=== PATIENT | female | born 1965 | race Caucasian/White ===

== ENCOUNTER 2017-12-19 12:16 | Emergency (ER) | payer MEDICAID ==
[~2017-12-19] VITALS: Ht 170.2 cm; Wt 77.1 kg
--- NOTE | 2017-12-19 12:30 | NUR ---
GENERALIZED WEAKNESS X 1 MONTH, HEADACHE AND NAUSEA, VOMITING X 1 TODAY. PT AAOX3, VSS. DENIES CP, SOB, DIZZINESS @ THIS TIME. AWAITING EVAL BY MD/TRANSFER COORDINATOR. WILL CONT TO MONITOR.
[2017-12-19 13:00] LABS: BASOPHILS % (AUTO) 0.6 % (0.0-2.0); EOSINOPHILS % (AUTO) 0.7 % (0.0-6.0); HEMATOCRIT 43 % (33-45); HEMOGLOBIN 14.5 g/dL (11.5-14.8); LYMPHOCYTES # (AUTO) 1.4 /CMM (0.8-4.8); LYMPHOCYTES % (AUTO) 23.7 % (20.0-44.0); MEAN CORPUSCULAR HGB CONC 34 g/dl (31.0-36.0); MEAN CORPUSCULAR VOLUME 88 fL (82-100); MONOCYTES # (AUTO) 0.3 /CMM (0.1-1.30); MONOCYTES % (AUTO) 4.2 % (2.0-12.0); NEUTROPHILS # (AUTO) 4.3 /CMM (1.8-8.9); NEUTROPHILS % (AUTO) 70.8 % (43.0-81.0); PLATELET COUNT (AUTO) 259 /CMM (150-450); RDW COEFFICIENT OF VARIATION 12.6 (11.5-15.0); RED BLOOD CELL COUNT(AUTO) 4.91 MIL/uL (4.0-5.2)
[2017-12-19] MEDS ORDERED: ACETAMINOPHEN ES 500 MG TABLET PO ONE (13:00)
[2017-12-19] MEDS ORDERED: ACETAMINOPHEN ES 500 MG TABLET ONE (13:00)
[2017-12-19] MEDS ORDERED: IV NS 0.9% 1,000 ML BAG IV ONE (13:00)
[2017-12-19 13:18] LABS: ALBUMIN 3.9 g/dL (3.4-5.0); BILIRUBIN,TOTAL 0.4 mg/dL (0.2-1.0); CALCIUM, SERUM 9.3 mg/dL (8.5-10.1); CREATININE 0.9 mg/dL (0.6-1.3); POTASSIUM 4.1 mmol/L (3.5-5.1); TOTAL PROTEIN, SERUM 7.5 g/dL (6.4-8.2)
[2017-12-19 13:52] LABS: APPEARANCE,URINE Clear (CLEAR); BILIRUBIN,URINE Negative (NEGATIVE); BLOOD, URINE Negative Ery/uL (NEGATIVE); COLOR,URINE Yellow (YELLOW); KETONES,URINE Negative (NEGATIVE); LEUKOCYTE ESTERASE ,URINE Negative (NEGATIVE); NITRITE, URINE Negative (NEGATIVE); PROTEIN,URINE Negative (NEGATIVE); UGLUCOSE Negative (NEGATIVE); UROBILINOGEN,URINE 0.2 EU/dL (0.2)
[2017-12-19 14:57] VITALS: BP 132/81
== END 2017-12-19 14:59 | disposition home or self-care (01) ==
LOC: ER 12:16
DX: R53.81 Other malaise (principal); R51 Headache; R11.2 Nausea with vomiting, unspecified; R35.8 Other polyuria; R63.1 Polydipsia; R63.2 Polyphagia
CPT/HCPCS: 36415; 80053; 81001; 82962; 84703; 85025; 96360; 96361; 99285; A4606; J7030; Z7610; 81000-TC

== ENCOUNTER 2018-11-02 14:59 | Emergency (ER) | payer MEDICAID ==
[~2018-11-02] VITALS: Ht 172.7 cm; Wt 90.7 kg
--- NOTE | 2018-11-02 15:48 | NUR ---
PATIENT CAME IN THE ER C/O RUQ ABDOMINAL PAIN, NAUSEA AND VOMITING X 5 DAYS. ON ROOM AIR, BREATHING EVENLY AND UNLABORED. AMBULATORY WITH STEADY GAIT. KEPT COMFORTABLE, WILL CONTINUE TO MONITOR ACCORDINGLY.
[2018-11-02 16:11] LABS: BASOPHILS # (AUTO) 0.1 /CMM (0.0-0.2); BASOPHILS % (AUTO) 1.2 % (0.0-2.0); HEMATOCRIT 45 % (33-45); HEMOGLOBIN 14.8 g/dL (11.5-14.8); LYMPHOCYTES # (AUTO) 1.6 /CMM (0.8-4.8); LYMPHOCYTES % (AUTO) 36.4 % (20.0-44.0); MEAN CORPUSCULAR HGB CONC 33 g/dl (31.0-36.0); MEAN CORPUSCULAR VOLUME 91 fL (82-100); MONOCYTES # (AUTO) 0.4 /CMM (0.1-1.30); MONOCYTES % (AUTO) 9.7 % (2.0-12.0); NEUTROPHILS # (AUTO) 2.2 /CMM (1.8-8.9); NEUTROPHILS % (AUTO) 49.7 % (43.0-81.0); PLATELET COUNT (AUTO) 258 /CMM (150-450); RED BLOOD CELL COUNT(AUTO) 4.96 MIL/uL (4.0-5.2); WHITE BLOOD COUNT (AUTO) 4.5 K/uL (4.3-11.0)
[2018-11-02 16:26] LABS: CALCIUM, SERUM 8.7 mg/dL (8.5-10.1); CREATININE 0.8 mg/dL (0.6-1.3); POTASSIUM 4.3 mmol/L (3.5-5.1)
[2018-11-02 16:32] LABS: ALBUMIN 3.1 g/dL (3.4-5.0); BILIRUBIN,DIRECT 0.3 mg/dL (0.0-0.2); BILIRUBIN,TOTAL 0.3 mg/dL (0.2-1.0)
--- NOTE | 2018-11-02 16:32 | NUR ---
SURVEYOR CHAIN HELPER AT BEDSIDE.
[2018-11-02 17:40] VITALS: BP 133/85
--- NOTE | 2018-11-02 17:41 | NUR ---
Patient discharged to home in stable condition. Written and verbal after care instructions given. Patient verbalizes understanding of instruction.
== END 2018-11-02 17:40 | disposition home or self-care (01) ==
LOC: ER 14:59
DX: K80.50 Calculus of bile duct without cholangitis or cholecystitis without obstruction (principal); R74.0 Nonspecific elevation of levels of transaminase and lactic acid dehydrogenase [LDH]; Z98.890 Other specified postprocedural states
CPT/HCPCS: 36415; 76705-TC; 80048-TC; 80076-TC; 83690-TC; 85025-TC

== ENCOUNTER 2019-08-31 08:32 | Inpatient (IN) | payer MEDICAID ==
[~2019-08-31] VITALS: Ht 167.6 cm; Wt 97.5 kg
--- NOTE | 2019-08-31 08:45 | NUR ---
padmini came in to the er c/o "Pain on the R side/abdomen x3days. Feel sick". On room air, breathing evenly an dunlabored. connected to the monitor and pulse ox. kept comfortable, will continue to monitor accordingly.
--- NOTE | 2019-08-31 09:20 | NUR ---
specimen technician at bedside for exam
[2019-08-31 09:27] LABS: APPEARANCE,URINE Clear (CLEAR); BACTERIA,URINE Few /HPF (None Seen); BILIRUBIN,URINE Negative (NEGATIVE); BLOOD, URINE Negative Ery/uL (NEGATIVE); COLOR,URINE Yellow (YELLOW); KETONES,URINE Negative (NEGATIVE); LEUKOCYTE ESTERASE ,URINE Negative (NEGATIVE); NITRITE, URINE Negative (NEGATIVE); PROTEIN,URINE Negative (NEGATIVE); UGLUCOSE Negative (NEGATIVE)
[2019-08-31 09:28] LABS: SQUAMOUS EPITHELIAL CELL,UR Few /HPF (None Seen)
--- NOTE | 2019-08-31 09:30 | NUR ---
FAXED CLINICALS TO [facility].
[2019-08-31 09:55] LABS: BASOPHILS % (AUTO) 0.7 % (0.0-2.0); EOSINOPHILS % (AUTO) 1.8 % (0.0-6.0); HEMATOCRIT 42 % (33-45); LYMPHOCYTES % (AUTO) 37.2 % (20.0-44.0); MEAN CORPUSCULAR HGB CONC 33 g/dl (31.0-36.0); MEAN CORPUSCULAR VOLUME 92 fL (82-100); MONOCYTES # (AUTO) 0.3 /CMM (0.1-1.30); MONOCYTES % (AUTO) 5.5 % (2.0-12.0); NEUTROPHILS # (AUTO) 2.9 /CMM (1.8-8.9); NEUTROPHILS % (AUTO) 54.8 % (43.0-81.0); PLATELET COUNT (AUTO) 259 /CMM (150-450); WHITE BLOOD COUNT (AUTO) 5.3 K/uL (4.3-11.0)
[2019-08-31 10:09] LABS: CALCIUM, SERUM 9.2 mg/dL (8.5-10.1); POTASSIUM 3.8 mmol/L (3.5-5.1)
[2019-08-31 10:21] LABS: ALBUMIN 3.8 g/dL (3.4-5.0); BILIRUBIN,DIRECT 0.1 mg/dL (0.0-0.2); BILIRUBIN,TOTAL 0.4 mg/dL (0.2-1.0); TOTAL PROTEIN, SERUM 7.3 g/dL (6.4-8.2)
--- NOTE | 2019-08-31 11:45 | NUR ---
FAXED CLINICALS TO [facility] A SECOND TIME.
--- NOTE | 2019-08-31 11:59 | NUR ---
SPOKE TO DR. LOMELI. PER DR. LOMELI WILL CONTACT PATTERNMAKER HELPER AT [facility] AND WILL FOLLOW UP WITH ER STAFF.
--- NOTE | 2019-08-31 12:28 | NUR ---
Received a call from Shelley ([facility]) and report given. Will call back for MD to .
--- NOTE | 2019-08-31 12:45 | NUR ---
PAGED [facility].
--- NOTE | 2019-08-31 12:58 | NUR ---
CALLED NURSING SUP FOR M/S BED.
--- NOTE | 2019-08-31 13:38 | NUR ---
DR. JOVEL CALLED BACK AND WANTS TO SEE THE AMBULANCE ETA BEFORE ACCEPTING PT. WILL CALL CM FROM [facility] TO OBTAIN ETA FOR AMBULANCE TRANSPORT.
--- NOTE | 2019-08-31 13:52 | NUR ---
SPOKE TO ALYSSA THOMPSON AT [facility] REGARDING AMBULANCE TRANSFER. ETA FOR AMBULANCE IS GREATER THAN [address] DR. LANG.
--- NOTE | 2019-08-31 15:22 | NUR ---
SPOKE TO KATY SHAH FROM [facility]. AT THE MOMENT THERE IS STILL NO BED ASSIGNMENT AND AMBULANCE ETA. STILL WAITING FOR BED ASSIGNMENT WITH UNKNOWN ETA. WILL NOTIFY DR. JOVEL.
--- NOTE | 2019-08-31 15:24 | NUR ---
PAGED DR. JOVEL.
--- NOTE | 2019-08-31 15:51 | NUR ---
SPOKE TO DR. JOVEL. NOTIFIED HIM ABOUT THERE NOT BEING ANY BED ASSIGNMENT AND AMBULANCE ETA. DR. JOVEL WILL ADMIT TO [facility].
[2019-08-31] MEDS ORDERED: IV 1/2NS 1000 ML 1,000 ML IV PRN (15:55)
--- NOTE | 2019-08-31 15:58 | NUR ---
NURSING SUP GAVE M/S BED 206-1.
[2019-08-31] MEDS ORDERED: ACETAMINOPHEN 325 MG TABLET PO PRN (16:00)
[2019-08-31] MEDS ORDERED: Z GUARD REMEDY 2 OZ OINT TP PRN (16:00)
[2019-08-31] MEDS ORDERED: MORPHINE SULFATE INJ 2 MG/ML DISP.SYRIN IV PRN (16:00)
[2019-08-31] MEDS ORDERED: ZOLPIDEM TARTRATE 5 MG TABLET PO PRN (16:00)
[2019-08-31] MEDS ORDERED: ONDANSETRON HCL/PF 4 MG/2 ML VIAL IVP PRN (16:00)
--- NOTE | 2019-08-31 16:06 | NUR ---
report given to evon humphrey for chris
[2019-08-31] MEDS ORDERED: IV NS 0.9% 500 ML BAG IV ONE (16:30)
--- NOTE | 2019-08-31 16:40 | NUR ---
wheeled patient via gurney accompanied by EMT in no distress. RN at bedside to assume care.
--- NOTE | 2019-08-31 17:30 | NUR ---
RN ADMITTING NOTE Patient arrived from ER on gurney, ambulated to bed. Patient is A/O x4, showing no signs of acute distress or SOB, stable on RA. IV line in the RAC #18g is clean and intact, flushing well. Vitals BP 149/93, HR 68, T97.7F O2 99% on RA. Patient has no complaints of pain at this time. Skin assessed, skin is intact. Bed is in lowest position, side rails x3 in upright position, side rails x3 in upright position, call light is within reach, fall safety and aspiration precautions enforced. Will continue with admitting orders.
[2019-08-31] MEDS ORDERED: PIPERACILLIN /TAZOBACTAM 4.5 G in IV D5W 50 ML IV SCH (18:00)
--- NOTE | 2019-08-31 18:57 | NUR ---
RN CLOSING NOTE Patient is resting in bed, A/O x4, showing no signs of acute distress or SOB, stable on RA. IV line in the RAC #18g is clean and intact, flushing well. All patient needs met, all due medications given. Ok per Dr. Rivas for patient to be on clear liquid diet. NPO after midnight for HIDA scan tomorrow. Bed is in lowest position, side rails x3 in upright position, side rails x3 in upright position, call light is within reach, fall safety and aspiration precautions enforced. Will endorse to shift superintendent caustic cresylate.
--- NOTE | 2019-08-31 19:30 | NUR ---
MS RN RECEIVE PT IN BED A/O X 4, NOT IN DISTRESS, STABLE. SAFETY MEASURES AT ALL TIMES. WILL CONT TO MONITOR.
[2019-08-31 20:00] VITALS: BP 121/75
[2019-08-31 20:26] VITALS: BP 121/75
--- NOTE | 2019-08-31 20:54 | NUR ---
MS RN PAGED AND RECEIVE NEW ORDERS OK TO SHOWER NOTED AND CARRIED OUT
[2019-08-31] MEDS: PIPERACILLIN /TAZOBACTAM 3.375 G in IV D5W 100 ML IV SCH (23:28)
--- NOTE | 2019-09-01 06:06 | NUR ---
MS RN PT SLEPT WELL, MONITORED FOR PAIN. NEEDS ATTENDED AND ANTICIPATED, KEPT CLEAN, DRY AND COMFORTABLE. AM CARE RENDERED, SAFETY MEASURES AT ALL TIMES. WILL ENDORSE TO NEXT SHIFT. MAINTAINS NPO MIDNIGHT.
[2019-09-01 08:00] VITALS: BP 135/78
[2019-09-01 08:29] LABS: BASOPHILS # (AUTO) 0.1 /CMM (0.0-0.2); BASOPHILS % (AUTO) 1.7 % (0.0-2.0); EOSINOPHILS % (AUTO) 2.2 % (0.0-6.0); HEMATOCRIT 42 % (33-45); HEMOGLOBIN 13.8 g/dL (11.5-14.8); LYMPHOCYTES # (AUTO) 1.3 /CMM (0.8-4.8); LYMPHOCYTES % (AUTO) 34.1 % (20.0-44.0); MEAN CORPUSCULAR HGB CONC 33 g/dl (31.0-36.0); MEAN CORPUSCULAR VOLUME 92 fL (82-100); MONOCYTES # (AUTO) 0.2 /CMM (0.1-1.30); MONOCYTES % (AUTO) 5.5 % (2.0-12.0); NEUTROPHILS # (AUTO) 2.2 /CMM (1.8-8.9); NEUTROPHILS % (AUTO) 56.5 % (43.0-81.0); PLATELET COUNT (AUTO) 251 /CMM (150-450); WHITE BLOOD COUNT (AUTO) 3.9 K/uL (4.3-11.0)
[2019-09-01] MEDS: PIPERACILLIN /TAZOBACTAM 3.375 G in IV D5W 100 ML IV SCH (08:32)
[2019-09-01 09:38] LABS: ALBUMIN 3.4 g/dL (3.4-5.0); BILIRUBIN,TOTAL 0.5 mg/dL (0.2-1.0); CALCIUM, SERUM 8.8 mg/dL (8.5-10.1); MAGNESIUM 2.1 mg/dL (1.8-2.4); PHOSPHORUS 3.6 mg/dL (2.5-4.9); POTASSIUM 3.9 mmol/L (3.5-5.1); TOTAL PROTEIN, SERUM 6.7 g/dL (6.4-8.2)
[2019-09-01 16:00] VITALS: BP 127/90
--- NOTE | 2019-09-01 18:58 | NUR ---
d/c note pt left hospital ama with bf. iv lines removed, id band removed. Pt is to f/u with md san for outpatient procedure (Gallbladder removal). office contact information give to pt. covid test performed for upcoiming surgery. pt left hospital in private vehicle.
== END 2019-09-01 19:02 | disposition left against medical advice (07) ==
LOC: ER 08:32 → MEDSG2 16:34
PROVIDERS: ADMIT Internal Medicine; ATTEND Internal Medicine
DX: K80.50 Calculus of bile duct without cholangitis or cholecystitis without obstruction (principal); K76.0 Fatty (change of) liver, not elsewhere classified; E66.9 Obesity, unspecified; Z86.32 Personal history of gestational diabetes; Z91.013 Allergy to seafood; Z68.34 Body mass index [BMI] 34.0-34.9, adult
CPT/HCPCS: 36415; 76705-TC; 78226; 80048-TC; 80053-TC; 80061-TC; 80076-TC; 81000-TC; 83690-TC; 83735-TC; 84100-TC; 85025-TC; 87081-TC; A9537; G0378; J2543; J3490; J7030; J7060; U0003-CS